=== PATIENT | female | born 1975 | race Caucasian/White ===

== ENCOUNTER 2016-11-21 12:03 | Emergency (ER) | payer OTHER ==
[~2016-11-21] VITALS: Ht 160 cm; Wt 66.2 kg
[~2016-11-21 12:03] MED LIST: GUAI1TAB55 PO; IBUP600T44 PO; METH0.2T39 PO; MONT1TAB3 PO; MULTTAB58 PO; NORE5TAB5 PO; ONDA4TAB7 SL; OXYC-57 PO; [UNRECOGNIZED DRUG - OTHER] PO
[2016-11-21 12:10] VITALS: TEMP 36.7; Ht 160 cm; Wt 66.2 kg
[2016-11-21 13:21] VITALS: O2SAT 97
[2016-11-21 13:35] LABS: BASO % 0.3 %; BASO ABS # 0.03 K/uL (0-0.2); COMPLETE YES; EOS % 1.2 %; IG% 0.2 %; LYMPH % 30.6 %; LYMPH ABS # 3.03 K/uL (1.2-3.4); MEAN CELL VOLUME 89.9 fL (80-100); MEAN CORPUSCULAR HEMOGLOBIN 31.8 pg (25-34); MEAN CORPUSCULAR HGB CONC 35.4 g/dl (32-36); MEAN PLATELET VOLUME 9.9 fL (7.4-10.4); MONO % 6.4 %; NEUT % 61.3 %; PLATELET COUNT 282 K/uL (130-400); RED BLOOD COUNT 4.56 M/uL (4.2-5.4); WHITE BLOOD COUNT 9.89 K/uL (4.8-10.8)
--- NOTE | 2016-11-21 13:49 | DIAGNOSTIC IMAGING REPORT ---
CHEST ONE VIEW PORTABLE CLINICAL HISTORY: chest pain dyspnea COMPARISON STUDY: No previous studies for comparison. FINDINGS: The bones soft tissues and hemidiaphragms are normal. The cardiomediastinal silhouette is normal. The lungs are clear. The pulmonary vasculature is normal. IMPRESSION: Negative chest. Electronically signed by: Frandy Taylor M.D. 11/21/2016 1:48 PM Dictated Date/Time: 11/21/2016 1:48 PM
[2016-11-21 14:13] LABS: BUN/CREATININE RATIO 11.1 (10-20); CALCIUM 9.1 mg/dl (8.5-10.1); CREATININE 0.73 mg/dl (0.60-1.20); POTASSIUM 3.2 mmol/L (3.5-5.1)
[2016-11-21 14:16] LABS: ALB/GLOB RATIO 1.1 (0.9-2)
[2016-11-21] MEDS ORDERED: B-COTAB69 PO (14:31)
[2016-11-21] MEDS ORDERED: CETITAB27 PO (14:31)
[2016-11-21] MEDS ORDERED: LEVO75TA5 PO (14:31)
[2016-11-21 14:46] VITALS: BP 128/78; PULSE 76; O2SAT 98
[2016-11-21] MEDS ORDERED: OMEP40CA41 PO (15:02)
--- NOTE | 2016-11-21 15:03 | EMERGENCY ROOM VISIT NOTE ---
History First contact with patient: 13:10 Chief Complaint: CARDIAC ASSESSMENT Stated Complaint: CHEST PAIN, BACK PAIN Nursing Triage Summary: Triage note: Pt reports "since last night i have felt like i had indigestion and i still think it is just indigestion i had pressure at my bra line and felt like my heart was being squeezed." pt reports pain lasted for approx 3 hours. pt denies any chest pain at this time. pt reports "my left arm aches." History of Present Illness The patient is a 41 year old female who presents to the Emergency Room with complaints of chest discomfort since last night. The patient reports that last night, she ate pizza for dinner. She had taken a Pepcid prior to eating dinner. She states that several hours later, she was lying down and felt a tightness in her upper abdomen/chest. She states that she had difficulty taking a deep breath due to the pain. The pain was constant and did not improve with any positional changes. She took Pepto-Bismol with some relief. She states that the pain lasted through the night in the morning, but has since resolved significantly. She rates her current discomfort only 1/10. The patient denies any personal or family history of cardiac disease. She is not a smoker and denies any history of hypertension or hyperlipidemia. She is not diabetic. She denies any recent long travel, use of control pills, recent surgery or swelling in her legs. The patient denies any nausea, vomiting , palpitations, shortness of breath, syncope or urinary symptoms. Review of Systems A complete 10-point Review of Systems was discussed with the patient, with pertinent positives and negatives listed in the History of Present Illness. All remaining Review of Systems questions can be considered negative unless otherwise specified. Social History Smoking Status: Never Smoker Marital Status: Occupation Status: employed Current/Historical Medications Scheduled B-Complex W/Biotin & Folic Aci (B Complete), 1 TAB PO DAILY Cetirizine/Pseudoephedrine (Zyrtec-D Er 5MG/120MG), 1 TAB PO Q12H Levothyroxine Sodium (Levothyroxine Sodium), 1 TAB PO DAILY Montelukast Sodium (Singulair), 10 MG PO DAILY Multiple Vitamin (Multivitamin), 1 TAB PO DAILY Omeprazole (Prilosec), 40 MG PO DAILY Scheduled PRN Ibuprofen (Motrin), 600 MG PO Q4H PRN Allergies Coded Allergies: Tretinoin (Verified Allergy, Mild, RASH, 11/21/16) Physical Exam Vital Signs Date Time Temp Pulse Resp B/P Pulse Ox O2 Delivery O2 Flow Rate FiO2 11/21/16 14:46 76 18 128/78 98 Room Air 11/21/16 14:15 76 18 126/74 98 Room Air 11/21/16 13:46 83 11/21/16 13:21 97 Room Air 11/21/16 12:10 36.7 79 18 143/84 97 Room Air Physical Exam VITALS: Vitals are noted on the nurse's note and reviewed by myself. Vital signs stable. GENERAL: This is a 41-year-old female, in no acute distress, nondiaphoretic, well-developed well-nourished. SKIN: Capillary reflex less than 2 seconds. HEENT: Normocephalic. PERRLA. EOMI. Nares patent. Mucous membranes moist. Neck is supple without nuchal rigidity. HEART: Regular rate and rhythm without murmurs gallops or rubs. LUNGS: Clear to auscultation bilaterally without wheezes, rales or rhonchi. CHEST: No reproducible pain on palpation. ABDOMEN: Positive bowel sounds x 4. Soft, nontender to palpation. NEURO: Patient was alert and oriented to person place and time. Medical Decision & Procedures ER Provider Diagnostic Interpretation: CHEST ONE VIEW PORTABLE CLINICAL HISTORY: chest pain dyspnea COMPARISON STUDY: No previous studies for comparison. FINDINGS: The bones soft tissues and hemidiaphragms are normal. The cardiomediastinal silhouette is normal. The lungs are clear. The pulmonary vasculature is normal. IMPRESSION: Negative chest. Laboratory Results 11/21/16 13:20 Red Blood Count 4.56, Mean Corpuscular Volume 89.9, Mean Corpuscular Hemoglobin 31.8, Mean Corpuscular Hemoglobin Concent 35.4, Mean Platelet Volume 9.9, Neutrophils (%) (Auto) 61.3, Lymphocytes (%) (Auto) 30.6, Monocytes (%) (Auto) 6.4, Eosinophils (%) (Auto) 1.2, Basophils (%) (Auto) 0.3, Neutrophils # (Auto) 6.06, Lymphocytes # (Auto) 3.03, Monocytes # (Auto) 0.63, Eosinophils # (Auto) 0.12, Basophils # (Auto) 0.03 11/21/16 13:20 Test 11/21/16 13:20 11/21/16 13:26 White Blood Count 9.89 K/uL (4.8-10.8) Red Blood Count 4.56 M/uL (4.2-5.4) Hemoglobin 14.5 g/dL (12.0-16.0) Hematocrit 41.0 % (37-47) Mean Corpuscular Volume 89.9 fL (80-100) Mean Corpuscular Hemoglobin 31.8 pg (25-34) Mean Corpuscular Hemoglobin Concent 35.4 g/dl (32-36) Platelet Count 282 K/uL (130-400) Mean Platelet Volume 9.9 fL (7.4-10.4) Neutrophils (%) (Auto) 61.3 % Lymphocytes (%) (Auto) 30.6 % Monocytes (%) (Auto) 6.4 % Eosinophils (%) (Auto) 1.2 % Basophils (%) (Auto) 0.3 % Neutrophils # (Auto) 6.06 K/uL (1.4-6.5) Lymphocytes # (Auto) 3.03 K/uL (1.2-3.4) Monocytes # (Auto) 0.63 K/uL (0.11-0.59) Eosinophils # (Auto) 0.12 K/uL (0-0.5) Basophils # (Auto) 0.03 K/uL (0-0.2) RDW Standard Deviation 39.9 fL (36.4-46.3) RDW Coefficient of Variation 12.2 % (11.5-14.5) Immature Granulocyte % (Auto) 0.2 % Immature Granulocyte # (Auto) 0.02 K/uL (0.00-0.02) Anion Gap 8.0 mmol/L (3-11) Est Creatinine Clear Calc Drug Dose 92.7 ml/min Estimated GFR () 118.6 Estimated GFR (Non- 102.3 BUN/Creatinine Ratio 11.1 (10-20) Calcium Level 9.1 mg/dl (8.5-10.1) Total Bilirubin 0.3 mg/dl (0.2-1) Aspartate Amino Transf (AST/SGOT) 20 U/L (15-37) Alanine Aminotransferase (ALT/SGPT) 23 U/L (12-78) Alkaline Phosphatase 86 U/L (45-117) Total Protein 7.4 gm/dl (6.4-8.2) Albumin 3.9 gm/dl (3.4-5.0) Globulin 3.5 gm/dl (2.5-4.0) Albumin/Globulin Ratio 1.1 (0.9-2) Bedside Troponin I 0.000 ng/ml (0-0.045) ECG Indication: chest pain Rate (beats per minute): 70 Rhythm: normal sinus Findings: no acute ischemic change, no ectopy Change: no significant change Medical Decision Differential diagnosis includes acute coronary syndrome, pulmonary embolism, pneumothorax, pericarditis, myocarditis, endocarditis, anxiety, musculoskeletal pain, GERD, costochondritis, pneumonia, among others. The patient was evaluated as above. Labs were drawn and IV access was obtained. The patient was placed on the food processor. Imaging studies were performed and read by radiology as above. The patient was reassessed multiple times during their stay in the emergency department and remained in stable condition. The patient is a 41-year-old female who presents today complaining of epigastric /chest pain. Labs revealed no leukocytosis, anemia or concerning in that joint abnormalities. Troponin was not elevated. EKG was not suggestive of acute ischemia. The patient's symptoms are certainly consistent with GERD/gastritis. She does not have any significant risk factors for cardiac disease and a troponin is not elevated. The patient's pain has almost completely resolved at the time of examination. The patient was reassured. She will be placed on Prilosec and follow up with her primary care provider. She was instructed to return sooner for any new/concerning symptoms or worsening of her current condition. Based on the patient's presentation, lab results, and imaging studies, I feel the patient is stable for outpatient treatment. The patient's case was reviewed with Dr. Reyes, ED attending physician, who agreed with my assessment and treatment plan. Discharge instructions were reviewed with the patient. The patient verbalized understanding of my assessment and treatment plan and was discharged home in good condition. Impression Primary Impression: Substernal chest pain Departure Information Dispostion Home / Self-Care Condition GOOD Prescriptions Omeprazole (PRILOSEC) 40 Mg Cap 40 MG PO DAILY for 14 Days, #14 CAP Prov: Pepper Lieberman .RUBIO 11/21/16 Referrals Gt Kaba M.D. (PCP) Patient Instructions My [facility] Additional Instructions Prilosec as prescribed. You have been treated in the Emergency Department for your Non-Cardiac Chest Pain. Laboratory results and Imaging Studies have ruled out any acute cardiac or pulmonary cause of your chest pain. For pain control, you can use the following [id number] medicines (if >12 yo): - Regular strength (325mg/tab) Tylenol (acetaminophen) 2 tabs every 4-6 hours as needed. Do not exceed 12 tablets in a 24 hour period. Avoid taking more than 4 grams (4000 mg) of Tylenol per day. This includes any other sources of acetaminophen you may take on a regular basis. - Regular strength (200 mg/tab) Advil (ibuprofen) 1-2 tabs every 4-6 hours as needed. Do not exceed a dose of 3200 mg per day. You should schedule a follow-up appointment with your Primary Care Provider in 2 -3 days for further evaluation from today's Emergency Department visit. Return to the Emergency Department if your current symptoms worsen despite treatment course outlined above, or if you develop any of the following symptoms : worsening chest pain, associated jaw/arm pain, nausea, dizziness, shortness of breath, bloody cough, or fainting.
[2016-12-23] MEDS ORDERED: FAMO20TA11 PO (10:53)
[2016-12-23] MEDS ORDERED: OMEP40CA41 PO (10:53)
[2016-12-25] MEDS ORDERED: HYDR-5688 PO (14:30)
[2016-12-26] MEDS ORDERED: PROM25TA9 PO (06:16)
[2016-12-26] MEDS ORDERED: FLUC150T PO (06:21)
== END 2016-11-21 15:15 | disposition home or self-care (01) ==
LOC: C.EDB 12:04
DX: R07.2 Precordial pain (principal)

== ENCOUNTER 2016-12-25 07:41 | Observation (INO) | payer OTHER ==
[2016-12-23 10:54] VITALS: BMI 23.0
[2016-12-25] VITALS (8 sets, daily range): BP systolic 98–111; BP diastolic 63–73; PULSE 53–82; TEMP 36.3–36.7; O2SAT 96–100; Ht 160 cm; Wt 60.0 kg
[~2016-12-25] VITALS: Ht 160 cm; Wt 60.0 kg
[~2016-12-25 07:41] MED LIST changes: +B-COTAB69 PO; +CEFUROXIME IV 1,500 MG in DEXTROSE 5% 100ML IV SCH; +CETITAB27 PO; +FAMO20TA11 PO; -GUAI1TAB55 PO; -IBUP600T44 PO; +LACTATED RINGER'S 1000ML 1,000 ML IV SCH; +LEVO75TA5 PO; -METH0.2T39 PO; -NORE5TAB5 PO; +OMEP40CA41 PO; -ONDA4TAB7 SL; -OXYC-57 PO; -[UNRECOGNIZED DRUG - OTHER] PO
[2016-12-25] MEDS ORDERED: ATROPINE SULFATE 0.1 MG/ML 5ML SYR IV PRN (08:15)
[2016-12-25] MEDS ORDERED: EpHEDrine SULFATE INJ 50 MG/ML AMP IV PRN (08:15)
[2016-12-25] MEDS ORDERED: ONDANSETRON INJ 2 MG/ML 2 ML VIAL IV PRN ×2 (08:15→12:15)
[2016-12-25] MEDS ORDERED: FENTANYL CITRATE INJ 50 MCG/1 ML 2 ML VIAL IV PRN (08:15)
[2016-12-25] MEDS ORDERED: SCOPOLAMINE 1.5 MG TDSY TD ONE (08:15)
[2016-12-25] MEDS ORDERED: HYDROmorphone INJ 1 MG/ML SYR IV PRN (08:15)
[2016-12-25] MEDS ORDERED: NEOSTIGMINE METHYLSULFATE 5 MG/5 ML SYR ONE (09:41)
[2016-12-25] MEDS ORDERED: MIDAZOLAM HCL 1 MG/ML 2ML VIAL ONE (09:41)
[2016-12-25] MEDS ORDERED: LIDOCAINE HCL 2% 2 ML VIAL (20MG/ML) ONE (09:41)
[2016-12-25] MEDS ORDERED: DEXAMETHASONE SOD INJ 4 MG/ML VIAL ONE (09:41)
[2016-12-25] MEDS ORDERED: ROCURONIUM BROMIDE 10 MG/ML 5 ML VIAL ONE (09:41)
[2016-12-25] MEDS ORDERED: FENTANYL CITRATE INJ 50 MCG/1 ML 2 ML VIAL ONE (09:41)
[2016-12-25] MEDS ORDERED: PROPOFOL IV EMULSION 10 MG/ML 20 ML VIAL IV ONE (09:41)
[2016-12-25] MEDS ORDERED: ONDANSETRON INJ 2 MG/ML 2 ML VIAL ONE (09:41)
[2016-12-25] MEDS ORDERED: GLYCOPYRROLATE INJ 0.2 MG/ML VIAL ONE ×2 (09:41→12:02)
--- NOTE | 2016-12-25 11:00 | History & Physical Bridge Note ---
H&P Re-Evaluation Bridge Note: I have examined the patient, reviewed the History & Physical and in the interval since the performance of the History & Physical I have noted the following changes of clinical significance: No changes noted
[2016-12-25] MEDS ORDERED: CONRAY 60% 50 ML VIAL ONE (11:06)
[2016-12-25] MEDS ORDERED: BUPIVACAINE 0.5 % 5 MG/1 ML MPF 30ML VIAL ONE (11:06)
[2016-12-25] MEDS ORDERED: KETOROLAC TROMETHAMINE 30 MG/ML VIAL ONE (11:56)
--- NOTE | 2016-12-25 12:06 | [facility] Post Operative Brief Note ---
Immediate Operative Summary Operative Date Dec 25, 2016. Pre-Operative Diagnosis Biliary colic; Biliary dyskinesia Post-Operative Diagnosis Biliary colic; Biliary dyskinesia, hydrops, chronic cholecystitis Procedure(s) Performed Laparoscopic Cholecystectomy Surgeon Dr. Henry Fleming Land Manager Surgeon(s) Shiva Rascon PA-C Estimated Blood Loss 5mL Findings stone in neck, hydrops, distended, inflammed Specimens A: gallbladder and contents Anesthesia gen Complication(s) None Disposition Recovery Room / PACU
[2016-12-25] MEDS ORDERED: HYDROCODONE/ACETAMOPHEN 5/325MG TAB PO PRN (12:15)
[2016-12-25] MEDS ORDERED: MoRPHine SULFATE 4 MG/ML 1 ML CARP\\VIAL IV PRN (12:15)
[2016-12-25] MEDS ORDERED: PROMETHAZINE HCL INJ 25 MG in SODIUM CHLORIDE 0.9% 50ML 50 ML IV PRN (12:15)
[2016-12-25] MEDS ORDERED: MoRPHine SULFATE 2 MG/ML CARP IV PRN (12:15)
--- NOTE | 2016-12-25 12:28 | OPERATIVE REPORT ---
DATE OF OPERATION: 12/25/2016 NAME OF OPERATION: Laparoscopic cholecystectomy. PREOPERATIVE DIAGNOSES: Biliary dyskinesia and biliary colic. POSTOPERATIVE DIAGNOSES: Same with hydrops and chronic cholecystitis. STAFF SURGEON: Dr. Maurilio Fleming. MANAGER NEWS: Shiva Rascon PA-C ANESTHESIA: General. DESCRIPTION OF PROCEDURE: The patient was brought into the operating room and placed on the operating table in the supine position. Her abdomen was prepped and draped in the usual fashion. Pneumatic stockings and orogastric tube were placed. Incision was made above the umbilicus through previous scar tissue, placing a Veress needle, producing pneumoperitoneum. An 11-mm port was placed at this level and then under visualization, three 5-mm ports placed, 1 cephalad and 2 laterally. Gallbladder was grasped and retracted. It was distended. It was inflamed and thickened. There was a stone in the neck obstructing the gallbladder. On aspiration of bile, it was clear, consistent with hydrops. Dissection was carried out at the stephany hepatis, identifying the cystic duct. It was clipped and transected. Cystic artery was identified, clipped and transected and then the gallbladder dissected away from the liver bed. There was edema in the posterior wall consistent with cholecystitis. The gallbladder was placed in an Endobag. After appropriate hemostasis and irrigation, the Endobag was removed through the umbilical site. I did have to enlarge the fascial defect because of the stone. The fascia at the umbilicus closed using 0 Vicryl suture. Skin then reapproximated using subcuticular 4-0 Monocryl and Dermabond. The patient was transferred to recovery room in stable condition. I attest to the content of the Intraoperative Record and any orders documented therein. Any exceptio ns are noted below.
--- NOTE | 2016-12-25 12:57 | Anesthesiology Progress Note ---
Anesthesia Post Op Note Date & Time Dec 25, 2016 at 12:57 Vital Signs Pain Intensity: 1 Vital Signs Past 12 Hours Date Time Temp Pulse Resp B/P Pulse Ox O2 Delivery O2 Flow Rate FiO2 12/25/16 12:45 62 16 108/64 100 Nasal Cannula 2 12/25/16 12:35 60 16 104/68 100 Nasal Cannula 2 12/25/16 12:25 55 16 108/68 100 Mask 10 12/25/16 12:15 36.0 63 16 120/78 100 Mask 10 12/25/16 07:55 82 18 109/68 98 Room Air Notes Mental Status: alert / awake / arousable, participated in evaluation Pt Amnestic to Procedure: Yes Nausea / Vomiting: adequately controlled Pain: adequately controlled Airway Patency, RR, SpO2: stable & adequate BP & HR: stable & adequate Hydration State: stable & adequate Anesthetic Complications: no major complications apparent
[2016-12-25] MEDS ORDERED: PROMETHAZINE HCL INJ 12.5 MG in SODIUM CHLORIDE 0.9% 50ML 50 ML IV PRN (13:15)
[2016-12-25] MEDS ORDERED: IV FLUIDS COMPLETED PRN (13:45)
[2016-12-25] MEDS ORDERED: HYDR-5688 PO (14:30)
[2016-12-25] MEDS: MAGNESIUM HYDROXIDE SUSP 30 ML UDC PO SCH ×2 (14:31→20:31)
[2016-12-25] MEDS: LACTATED RINGER'S 1000ML 1,000 ML IV SCH (14:32)
[2016-12-25] MEDS: DOCUSATE SODIUM/SENNA 50/8.6MG TAB PO SCH ×2 (14:32→20:28)
--- NOTE | 2016-12-25 14:33 | Discharge Instructions ---
Discharge Instructions Date of Service Dec 25, 2016. Admission Reason for Admission: Biliary Colic, Biliary Dyskinesia Discharge Discharge Diagnosis / Problem: chronic cholecystitis Discharge Goals Goal(s): Decrease discomfort, Improve function, Improve disease control Activity Recommendations Activity Limitations: as noted below Lifting Limitations: no more than 25 pounds Exercise/Sports Limitations: until after follow-up appointment May Resume Sexual Activity: when tolerated Shower/Bathe: tomorrow Driving or Machine Use: resume 3 days after discharge SPECIAL CARE INSTRUCTIONS: * Cover incisions and change daily for comfort/drainage. * avoid constipation- may use Senokot S and Milk of magnesia twice daily for 1- 2 weeks * May use ibuprofen for pain as tolerated. * Expect some swelling and bruising. Call your doctor if: * Temperature above 101 degrees * Pain not relieved by pain medicine ordered * There is increased drainage or redness from any incision * You have any unanswered questions or concerns [phone]. FOLLOW UP VISIT: If not already scheduled, please call the office for a follow-up visit. for 2 weeks- check up OFFICE PHONE NUMBER: Dr. Fleming Office . Current Hospital Diet Patient's current hospital diet: Regular Diet Discharge Diet Recommended Diet: Regular Diet Procedures Procedures Performed: Laparoscopic Cholecystectomy Pending Studies Studies pending at discharge: no Medical Emergencies . Who to Call and When: Medical Emergencies: If at any time you feel your situation is an emergency, please call 911 immediately. . Non-Emergent Contact Non-Emergency issues call your: Primary Care Provider, Surgeon . "Provider Documentation" section prepared by Maurilio Fleming. . VTE Core Measure Inpt VTE Proph given/why not?: SCD's
[2016-12-25] MEDS: CEFUROXIME IV 1,500 MG in DEXTROSE 5% 100ML 100 ML IV SCH (16:51)
[2016-12-25] MEDS: HYDROCODONE/ACETAMOPHEN 5/325MG TAB PO PRN (20:27)
[2016-12-26] MEDS: CEFUROXIME IV 1,500 MG in DEXTROSE 5% 100ML 100 ML IV SCH ×2 (01:07→08:55)
[2016-12-26 03:10] VITALS: BP 96/60; PULSE 57; TEMP 36.7; O2SAT 97
[2016-12-26] MEDS ORDERED: LEVOTHYROXINE 75 MCG TAB PO SCH (06:00)
[2016-12-26] MEDS ORDERED: PROM25TA9 PO (06:16)
[2016-12-26] MEDS ORDERED: FLUC150T PO (06:21)
--- NOTE | 2016-12-26 07:19 | DISCHARGE SUMMARY ---
PRINCIPAL DIAGNOSIS: Acute and chronic cholecystitis. PROCEDURES: The patient underwent laparoscopic cholecystectomy. HISTORY OF PRESENT ILLNESS: The patient is a 41-year-old female who has been having upper abdominal pain for weeks and found on HIDA scan to have a nonvisualization of the gallbladder felt to be consistent with chronic disease. The patient was brought into the hospital on 12/25/2016. She underwent laparoscopic cholecystectomy showing a distended, thickened gallbladder with a stone in the neck of the gallbladder. Aspiration of bile showed hydrops within the gallbladder, all consistent with acute and chronic cholecystitis. The patient has done well without nausea or vomiting. She does have a slight bit of blurry vision and feels it is likely from the scopolamine patch which she has had on. It was taken off and it has improved. She would like to go home and I do feel she is stable to be discharged. If her vision continues to be somewhat blurred we may have to have an ophthalmology consult as an outpatient. She is satisfied with this plan and again wishes to go home. We will see her in the office within 1-2 weeks.
[2016-12-26 07:37] VITALS: BP 90/51; PULSE 67; TEMP 36.7; O2SAT 96
[2016-12-26] MEDS: HYDROCODONE/ACETAMOPHEN 5/325MG TAB PO PRN ×2 (08:00→12:03)
[2016-12-26] MEDS: LACTATED RINGER'S 1000ML 1,000 ML IV SCH (08:00)
[2016-12-26] MEDS: MAGNESIUM HYDROXIDE SUSP 30 ML UDC PO SCH (08:55)
[2016-12-26] MEDS: DOCUSATE SODIUM/SENNA 50/8.6MG TAB PO SCH (08:55)
[2016-12-26] MEDS ORDERED: PANTOprazole SOD 40 MG TAB PO SCH (09:00)
[2016-12-26] MEDS ORDERED: MONTELUKAST SOD 10 MG TAB PO SCH (09:00)
[2016-12-26 11:23] VITALS: BP 90/51; PULSE 67; TEMP 36.7; O2SAT 96
== END 2016-12-26 12:56 | disposition home or self-care (01) ==
LOC: ENRESERVTM → ENRESERVDT → C.ACU 07:41 → C.MSN 12:11
PROVIDERS: ADMIT Surgery; ATTEND Surgery
DX: K80.10 Calculus of gallbladder with chronic cholecystitis without obstruction (principal); Z87.891 Personal history of nicotine dependence; Z80.0 Family history of malignant neoplasm of digestive organs

== ENCOUNTER → 2017-05-30 | Outpatient (CLI) | payer OTHER ==
[~2017-05-30] MED LIST changes: -CEFUROXIME IV 1,500 MG in DEXTROSE 5% 100ML IV SCH; -FAMO20TA11 PO; +HYDR-5688 PO; -LACTATED RINGER'S 1000ML 1,000 ML IV SCH; +PROM25TA9 PO
[2017-05-30 13:47] LABS: THYROID STIMULATING HORMONE 0.946 uIu/ml (0.300-4.500)
== END | disposition home or self-care (01) ==
LOC: C.LAB1850 10:14
PROVIDERS: ATTEND Obstetrics & Gynecology
DX: R61 Generalized hyperhidrosis (principal)

== ENCOUNTER → 2017-09-26 | Outpatient (CLI) | payer OTHER ==
[~2017-09-26] MED LIST changes: -HYDR-5688 PO; -PROM25TA9 PO
== END | disposition home or self-care (01) ==
LOC: C.PAPS 15:01
PROVIDERS: ATTEND Obstetrics & Gynecology
DX: Z12.4 Encounter for screening for malignant neoplasm of cervix (principal)

== ENCOUNTER → 2017-09-26 | Outpatient (CLI) | payer OTHER | END | disposition home or self-care (01) | LOC: C.LABSPEC 15:18 | PROVIDERS: ATTEND Obstetrics & Gynecology | DX: N76.0 Acute vaginitis (principal) ==

== ENCOUNTER → 2017-12-03 | Outpatient (CLI) | payer BC ==
[2017-12-03 11:05] LABS: BLOOD UREA NITROGEN 10 mg/dl (7-18); CALCIUM 9.1 mg/dl (8.5-10.1); CARBON DIOXIDE 27 mmol/L (21-32); CREATININE 0.74 mg/dl (0.60-1.20); GLUCOSE 89 mg/dl (70-99); POTASSIUM 3.7 mmol/L (3.5-5.1); SODIUM 139 mmol/L (136-145)
[2017-12-03 11:19] LABS: FOLLICLE STIMULAT HORMONE 6.7 IU/L
[2017-12-07 13:31] LABS: MICROSOMAL AB 47 IU/ML (<9)
== END | disposition home or self-care (01) ==
LOC: C.LAB1850 09:32
PROVIDERS: ATTEND Internal Medicine Endocrinology, Diabetes & Metabolism
DX: E03.9 Hypothyroidism, unspecified (principal); R00.2 Palpitations; R61 Generalized hyperhidrosis

== ENCOUNTER → 2017-12-09 | Outpatient (CLI) | payer BC ==
--- NOTE | 2017-12-09 12:05 | DIAGNOSTIC IMAGING REPORT ---
THYROID ULTRASOUND CLINICAL HISTORY: PRIMARY HYPOTHYROIDISM COMPARISON STUDY: None. TECHNIQUE: Sonography of the thyroid gland was performed. FINDINGS: The right thyroid lobe measures 3.4 x 1.4 x 1.5 cm and the left thyroid lobe measures 4.2 x 1.2 x 1.6 cm. The gland is heterogeneous. Note is made of a 0.7 x 0.5 x 0.5 cm hypoechoic nodule within the upper pole of the left thyroid lobe. No additional thyroid nodules are present. IMPRESSION: 1. Heterogeneous thyroid gland. 2. 0.7 cm hypoechoic nodule within the upper pole of the left thyroid lobe which does not meet criteria for biopsy. Electronically signed by: Mikhail Abreu M.D. 12/09/2017 12:04 PM Dictated Date/Time: 12/09/2017 12:02 PM
== END | disposition home or self-care (01) ==
LOC: C.ULTR 10:47
PROVIDERS: ATTEND Internal Medicine Endocrinology, Diabetes & Metabolism
DX: E03.9 Hypothyroidism, unspecified (principal); E04.1 Nontoxic single thyroid nodule